=== PATIENT | male | born 1950 | race Caucasian/White ===

== ENCOUNTER → 2021-12-24 | Outpatient (REF) | payer BC ==
[2021-12-24 19:16] LABS: APPEARANCE, URINE MANUAL HAZY (CLEAR); COLOR, URINE MANUAL YELLOW (YELLOW)
[2021-12-24 19:18] LABS: BILIRUBIN, URINE MANUAL NEGATIVE (NEGATIVE); BLOOD URINE MANUAL TRACE (NEGATIVE); GLUCOSE, URINE (UA) MANUAL NEGATIVE (NEGATIVE); KETONE, URINE MANUAL NEGATIVE (NEGATIVE); LEUKOCYTE ESTERASE, URINE MAN POSITIVE (NEGATIVE); NITRITE, URINE MANUAL NEGATIVE (NEGATIVE); PROTEIN, URINE MANUAL NEGATIVE (NEGATIVE); UROBILINOGEN, URINE MANUAL NORMAL (NORMAL)
[2021-12-24 20:42] LABS: BACTERIA, URINE LARGE AMOUNT; HYALINE CAST, URINE NONE SEEN /lpf (0-1); SQUAMOUS EPITHELIAL CELL URINE LARGE AMOUNT /hpf (SMALL AMT); TRANSITIONAL EPI CELLS, URINE MOD AMOUNT /hpf; WBC, URINE TNTC /hpf (0-3)
== END ==
LOC: M SMT 17:30
PROVIDERS: ATTEND Physician Assistant
DX: R35.0 Frequency of micturition (principal)

== ENCOUNTER 2022-02-03 07:23 | Day surgery (SDC) | payer BC ==
[~2022-02-03] VITALS: Ht 175.3 cm; Wt 73.2 kg
[~2022-02-03 07:23] MED LIST: AMLO1TAB24 PO; ASPI81CH33 PO; AZIT-12 PO; DULO1CAP5 PO; LEXA1TAB PO; LOSA100T45 PO; MEMA10TA19 PO; METO1TAB7 PO; MULT-4 PO; OMEP40CA5 PO; POTA-151 PO; PROAAER10 INH; TAMS1CAP17 PO; THEO400T4 PO; TREL1AER INH; VITA200020 PO; ceFAZolin SOD 2 GM in IV 1 EA IV ONE
[2022-02-03] MEDS ORDERED: LR 1,000 ML IV SCH ×2 (07:35→09:00)
[2022-02-03] MEDS ORDERED: dexameTHASONE 4 MG/ML 1ML VIAL (J1100 PER 1MG) As Ordered ONE (07:58)
[2022-02-03] MEDS ORDERED: fentaNYL 100 MCG/2 ML INJECTION As Ordered ONE (07:58)
[2022-02-03] MEDS ORDERED: MIDAZOLAM INJ 2MG/2ML VIAL (J2250 PER 1MG) As Ordered ONE (07:58)
[2022-02-03] MEDS ORDERED: ONDANSETRON 4MG 2ML VIAL As Ordered ONE (07:58)
[2022-02-03] MEDS ORDERED: LIDOCAINE 2% 100MG/5ML SDV (FOR ANES.) As Ordered ONE (07:58)
[2022-02-03] MEDS ORDERED: propofoL 200 MG/20 ML VIAL As Ordered ONE ×2 (07:58→08:54)
[2022-02-03] MEDS ORDERED: AMOX875T2 (08:48)
[2022-02-03] MEDS ORDERED: ACETAMINOPHEN 1000MG 100ML IV BTL (OFIRMEV) (J0131 PER 10MG) As Ordered ONE (08:57)
[2022-02-03] MEDS ORDERED: MORPHINE 2 MG/ML 1ML VIAL IV PRN (09:00)
[2022-02-03] MEDS ORDERED: ONDANSETRON 4MG 2ML VIAL IV PRN (09:00)
[2022-02-03] MEDS ORDERED: oxyCODONE 5MG TAB PO PRN (09:00)
[2022-02-03] MEDS ORDERED: PYRI1TAB5 PO (09:18)
[2022-02-03] MEDS ORDERED: LEVO1TAB39 PO (09:18)
[2022-02-03] MEDS ORDERED: OXYB5TAB10 PO (09:18)
[2022-02-03 10:45] VITALS: BP 127/71
== END 2022-02-03 10:45 | disposition home or self-care (01) ==
LOC: M SDC 07:23
PROVIDERS: ATTEND Urology
DX: N35.919 Unspecified urethral stricture, male, unspecified site (principal); I10 Essential (primary) hypertension; E78.5 Hyperlipidemia, unspecified; K21.9 Gastro-esophageal reflux disease without esophagitis; F03.90 Unspecified dementia, unspecified severity, without behavioral disturbance, psychotic disturbance, mood disturbance, and anxiety; J44.9 Chronic obstructive pulmonary disease, unspecified; Z87.891 Personal history of nicotine dependence; Z79.82 Long term (current) use of aspirin; Z79.2 Long term (current) use of antibiotics; Z79.51 Long term (current) use of inhaled steroids
CPT/HCPCS: 52276; 87635; C1769; J0131; J0690; J1100; J2250; J2405; J3010

== ENCOUNTER → 2022-03-04 | Outpatient (CLI) | payer BC ==
[~2022-03-04] MED LIST changes: +AMOX875T2; +LEVO1TAB39 PO; +OXYB5TAB10 PO; +PROA1AER2 IN; +PYRI1TAB5 PO; +VITMTA PO; -ceFAZolin SOD 2 GM in IV 1 EA IV ONE
== END ==
LOC: M LABSMTC 10:43
PROVIDERS: ATTEND Anesthesiology
DX: Z01.812 Encounter for preprocedural laboratory examination (principal); Z20.822 Contact with and (suspected) exposure to COVID-19

== ENCOUNTER 2022-03-09 10:51 | Day surgery (SDC) | payer BC ==
[~2022-03-09] VITALS: Ht 175.3 cm; Wt 73.5 kg
[~2022-03-09 10:51] MED LIST changes: +BSS IRRIG/VANCO(10MG)/TOBRA(5MG)/EPINEPH(1:1000-0.5CC)500ML BAG-ORONLY IR ONE; +CEFUROXIME 1MG/0.1ML INTRACAMERAL INJ As Ordered ONE; +CYCLOPENTOLATE 1% OPHTH SOLN 2 ML BTL OD SCH; +LIDOCAINE 1% SDV 5ML VIAL As Ordered ONE; +LIDOCAINE 3.5 % 1ML OPHTH TOPICAL GEL OU ONE; +MIDAZOLAM INJ 2MG/2ML VIAL (J2250 PER 1MG) As Ordered ONE; +OFLOXACIN 0.3 % (OCUFLOX) OPTH SOL 5ML OD ONE; +PHENYLEPHRINE 2.5% OPHTH SOL 2ML OD SCH; +PHENYLEPHRINE HCL 10 % OPHTH. SOL 5ML OD PRN; +TROPICAMIDE 1% OPHTH SOLN 2ML OD SCH; +fentaNYL 100 MCG/2 ML INJECTION As Ordered ONE
[2022-03-09 12:00] VITALS: BP 121/63
== END 2022-03-09 12:20 | disposition home or self-care (01) ==
LOC: M SDC 10:51
PROVIDERS: ATTEND Ophthalmology
DX: H25.11 Age-related nuclear cataract, right eye (principal); J44.9 Chronic obstructive pulmonary disease, unspecified; I10 Essential (primary) hypertension; E78.5 Hyperlipidemia, unspecified; K21.9 Gastro-esophageal reflux disease without esophagitis; F03.90 Unspecified dementia, unspecified severity, without behavioral disturbance, psychotic disturbance, mood disturbance, and anxiety; Z79.51 Long term (current) use of inhaled steroids; Z79.899 Other long term (current) drug therapy; N40.0 Benign prostatic hyperplasia without lower urinary tract symptoms; Z87.891 Personal history of nicotine dependence
CPT/HCPCS: 66984; J0697; J2250; J3010

== ENCOUNTER 2022-05-25 09:05 | Day surgery (SDC) | payer BC ==
[~2022-05-25] VITALS: Ht 175.3 cm; Wt 75.7 kg
[~2022-05-25 09:05] MED LIST changes: -CYCLOPENTOLATE 1% OPHTH SOLN 2 ML BTL OD SCH; +CYCLOPENTOLATE 1% OPHTH SOLN 2ML BTL OS SCH; -MIDAZOLAM INJ 2MG/2ML VIAL (J2250 PER 1MG) As Ordered ONE; +MULT-90 PO; -OFLOXACIN 0.3 % (OCUFLOX) OPTH SOL 5ML OD ONE; +OFLOXACIN 0.3 % (OCUFLOX) OPTH SOL 5ML OS ONE; +PHENYLEPHRINE 10% OPHTH SOL 5ML OS PRN; -PHENYLEPHRINE 2.5% OPHTH SOL 2ML OD SCH; +PHENYLEPHRINE 2.5% OPHTH SOL 2ML OS SCH; -PHENYLEPHRINE HCL 10 % OPHTH. SOL 5ML OD PRN; +TROPICAMIDE 1% OPHTH SOLN 15ML OS SCH; -TROPICAMIDE 1% OPHTH SOLN 2ML OD SCH; -fentaNYL 100 MCG/2 ML INJECTION As Ordered ONE
[2022-05-25 10:20] VITALS: BP 163/87
== END 2022-05-25 10:40 | disposition home or self-care (01) ==
LOC: M SDC 09:05
PROVIDERS: ATTEND Ophthalmology
DX: H25.12 Age-related nuclear cataract, left eye (principal); I10 Essential (primary) hypertension; E78.5 Hyperlipidemia, unspecified; K21.9 Gastro-esophageal reflux disease without esophagitis; F03.90 Unspecified dementia, unspecified severity, without behavioral disturbance, psychotic disturbance, mood disturbance, and anxiety; J44.9 Chronic obstructive pulmonary disease, unspecified; N40.0 Benign prostatic hyperplasia without lower urinary tract symptoms; Z79.51 Long term (current) use of inhaled steroids; Z79.899 Other long term (current) drug therapy
CPT/HCPCS: 66984; J0697

== ENCOUNTER → 2022-09-22 | Outpatient (REF) | payer BC ==
[~2022-09-22] MED LIST changes: -BSS IRRIG/VANCO(10MG)/TOBRA(5MG)/EPINEPH(1:1000-0.5CC)500ML BAG-ORONLY IR ONE; -CEFUROXIME 1MG/0.1ML INTRACAMERAL INJ As Ordered ONE; -CYCLOPENTOLATE 1% OPHTH SOLN 2ML BTL OS SCH; -LIDOCAINE 1% SDV 5ML VIAL As Ordered ONE; -LIDOCAINE 3.5 % 1ML OPHTH TOPICAL GEL OU ONE; -LOSA100T45 PO; +LOSA100T46 PO; -OFLOXACIN 0.3 % (OCUFLOX) OPTH SOL 5ML OS ONE; -PHENYLEPHRINE 10% OPHTH SOL 5ML OS PRN; -PHENYLEPHRINE 2.5% OPHTH SOL 2ML OS SCH; -TROPICAMIDE 1% OPHTH SOLN 15ML OS SCH
[2022-09-22 14:36] LABS: APPEARANCE, URINE CLOUDY (CLEAR); BACTERIA, URINE AUTO NEGATIVE (NEGATIVE); BILIRUBIN, URINE AUTO NEGATIVE (NEGATIVE); BLOOD, URINE BLOOD NEGATIVE (NEGATIVE); COLOR, URINE AMBER (YELLOW); GLUCOSE, URINE (UA) AUTO NEGATIVE (NEGATIVE); KETONE, URINE AUTO TRACE mg/dL (NEGATIVE); LEUKOCYTE ESTERASE, URINE AUTO 3+ (NEGATIVE); MUCUS, URINE SMALL (NEGATIVE); NITRITE, URINE AUTO NEGATIVE (NEGATIVE); PROTEIN, URINE AUTO 1+ mg/dL (NEGATIVE); RBC, URINE AUTO 5 /HPF (0-3); RENAL EPITHELIAL CELLS 1 /HPF; SPECIFIC GRAVITY URINE AUTO 1.016 (1.002-1.035); SQUAMOUS EPITHELIAL CELL UR AU 6 /HPF (0-6); WBC, URINE AUTO TNTC /HPF (0-3)
== END ==
LOC: M SMT 13:26
PROVIDERS: ATTEND Physician Assistant
DX: R35.0 Frequency of micturition (principal)

== ENCOUNTER → 2022-12-14 | Outpatient (REF) | payer BC ==
[2022-12-14 14:15] LABS: APPEARANCE, URINE HAZY (CLEAR); BACTERIA, URINE AUTO 1+ (NEGATIVE); BILIRUBIN, URINE AUTO NEGATIVE (NEGATIVE); BLOOD, URINE BLOOD NEGATIVE (NEGATIVE); COLOR, URINE YELLOW (YELLOW); GLUCOSE, URINE (UA) AUTO NEGATIVE (NEGATIVE); KETONE, URINE AUTO NEGATIVE (NEGATIVE); LEUKOCYTE ESTERASE, URINE AUTO 3+ (NEGATIVE); MUCUS, URINE SMALL (NEGATIVE); NITRITE, URINE AUTO NEGATIVE (NEGATIVE); PROTEIN, URINE AUTO NEGATIVE (NEGATIVE); RBC, URINE AUTO 6 /HPF (0-3); SPECIFIC GRAVITY URINE AUTO 1.012 (1.002-1.035); SQUAMOUS EPITHELIAL CELL UR AU 2 /HPF (0-6); UROBILINOGEN, URINE AUTO 0.2 mg/dL (0.0-2.0); WBC, URINE AUTO 176 /HPF (0-3)
== END ==
LOC: M SMT 13:14
PROVIDERS: ATTEND Physician Assistant
DX: R30.0 Dysuria (principal)

== ENCOUNTER → 2023-06-17 | Outpatient (REF) | payer BC ==
[~2023-06-17] MED LIST changes: -OXYB5TAB10 PO; +OXYB5TAB14 PO
[2023-06-17 17:48] LABS: APPEARANCE, URINE CLEAR (CLEAR); BACTERIA, URINE AUTO NEGATIVE (NEGATIVE); BILIRUBIN, URINE AUTO NEGATIVE (NEGATIVE); BLOOD, URINE BLOOD NEGATIVE (NEGATIVE); COLOR, URINE YELLOW (YELLOW); GLUCOSE, URINE (UA) AUTO NEGATIVE (NEGATIVE); KETONE, URINE AUTO NEGATIVE (NEGATIVE); LEUKOCYTE ESTERASE, URINE AUTO NEGATIVE (NEGATIVE); NITRITE, URINE AUTO NEGATIVE (NEGATIVE); PROTEIN, URINE AUTO NEGATIVE (NEGATIVE); RBC, URINE AUTO 0 /HPF (0-3); SPECIFIC GRAVITY URINE AUTO 1.008 (1.002-1.035); SQUAMOUS EPITHELIAL CELL UR AU 1 /HPF (0-6); UROBILINOGEN, URINE AUTO 0.2 mg/dL (0.0-2.0); WBC, URINE AUTO 1 /HPF (0-3)
== END ==
LOC: M SMT 17:02
PROVIDERS: ATTEND Urology
DX: Z87.448 Personal history of other diseases of urinary system (principal)

== ENCOUNTER 2023-08-23 06:49 | Day surgery (SDC) | payer MEDICARE ==
[~2023-08-23] VITALS: Ht 175.3 cm; Wt 70.8 kg
[~2023-08-23 06:49] MED LIST changes: +IPRA0.00; +MEMA10TA PO; -MEMA10TA19 PO
[2023-08-23] MEDS: LR 1,000 ML IV SCH (07:39)
[2023-08-23] MEDS ORDERED: ONDANSETRON 4MG 2ML VIAL As Ordered ONE (07:50)
[2023-08-23] MEDS ORDERED: propofoL 200 MG/20 ML VIAL As Ordered ONE (07:50)
[2023-08-23] MEDS ORDERED: LIDOCAINE 2% 100MG/5ML SDV (FOR ANES.) As Ordered ONE (07:50)
[2023-08-23] MEDS ORDERED: MIDAZOLAM INJ 2MG/2ML VIAL As Ordered ONE (07:54)
[2023-08-23] MEDS ORDERED: fentaNYL 100 MCG/2 ML INJECTION As Ordered ONE (07:54)
[2023-08-23] MEDS ORDERED: LIDOCAINE 2% 5ML JELLY UROJET As Ordered ONE (08:32)
[2023-08-23] MEDS ORDERED: HYDR-3713 PO (08:55)
[2023-08-23] MEDS ORDERED: MACR100C43 PO (08:55)
[2023-08-23] MEDS: ceFAZolin SOD 2 GM in IV 1 EA IV ONE (08:56)
[2023-08-23] MEDS ORDERED: ACETAMINOPHEN 1000MG 100ML IV BAG As Ordered ONE (08:59)
[2023-08-23] MEDS ORDERED: HYDROMORPHONE HCL 0.5 MG/ 0.5 ML SYRINGE IV PRN (09:20)
[2023-08-23] MEDS ORDERED: fentaNYL 100 MCG/2 ML INJECTION IV PRN (09:20)
[2023-08-23] MEDS ORDERED: LR 1,000 ML IV SCH (09:20)
[2023-08-23] MEDS ORDERED: oxyCODONE 5MG TAB PO PRN (09:20)
[2023-08-23] MEDS ORDERED: ONDANSETRON 4MG 2ML VIAL IV PRN (09:20)
[2023-08-23 10:50] VITALS: BP 135/68; TEMP 97.9; O2SAT 97
== END 2023-08-23 11:05 | disposition home or self-care (01) ==
LOC: M SDC 06:49
PROVIDERS: ATTEND Urology
DX: N35.919 Unspecified urethral stricture, male, unspecified site (principal); J44.9 Chronic obstructive pulmonary disease, unspecified; I10 Essential (primary) hypertension; E78.00 Pure hypercholesterolemia, unspecified; G30.9 Alzheimer's disease, unspecified; F02.80 Dementia in other diseases classified elsewhere, unspecified severity, without behavioral disturbance, psychotic disturbance, mood disturbance, and anxiety; Z87.440 Personal history of urinary (tract) infections; K21.9 Gastro-esophageal reflux disease without esophagitis; Z79.899 Other long term (current) drug therapy; Z90.79 Acquired absence of other genital organ(s); Z79.51 Long term (current) use of inhaled steroids
CPT/HCPCS: 52276; J0131; J0690; J1100; J2250; J2405; J3010